=== PATIENT | female | born 2000 | race Caucasian/White ===

== ENCOUNTER → 2021-12-08 | Outpatient (CLI) | payer OTHER | END | disposition home or self-care (01) | LOC: LAB SHORT 19:14 → LAB 19:14 | DX: R30.9 Painful micturition, unspecified (principal) | CPT/HCPCS: 87086; 87147 ==

== ENCOUNTER → 2023-05-24 | Outpatient (CLI) | payer BC ==
[~2023-05-24] MED LIST: CEFP200 PO
[2023-05-25 12:08] LABS: Candida species (DNA Probe) Negative (NEGATIVE); G. vaginalis (DNA Probe) Positive (NEGATIVE); T. vaginalis (DNA Probe) Negative (NEGATIVE)
== END ==
LOC: LAB SHORT 17:28 → LAB 17:28
PROVIDERS: Advanced Practice Midwife
DX: N76.0 Acute vaginitis (principal)
CPT/HCPCS: 87480; 87510; 87660